=== PATIENT | female | born 1985 | race Caucasian/White ===

== ENCOUNTER 2018-04-27 15:31 | Emergency (ER) | payer MEDICAID ==
[~2018-04-27] VITALS: Ht 167.6 cm; Wt 89.8 kg
[2018-04-27 16:17] VITALS: BP 110/75; Ht 167.6 cm; Wt 89.8 kg
== END 2018-04-27 17:34 | disposition home or self-care (01) ==
LOC: ED 15:31
DX: S09.93XA Unspecified injury of face, initial encounter (principal); W21.02XA Struck by soccer ball, initial encounter; Y93.66 Activity, soccer; Y92.322 Soccer field as the place of occurrence of the external cause; Y99.8 Other external cause status
CPT/HCPCS: J1885

== ENCOUNTER 2019-05-02 18:33 | Emergency (ER) | payer BC ==
[~2019-05-02] VITALS: Ht 167.6 cm; Wt 95.7 kg
[2019-05-02 18:46] VITALS: Ht 167.6 cm; Wt 95.7 kg
[2019-05-02 19:42] VITALS: BP 118/74
== END 2019-05-02 20:24 | disposition home or self-care (01) ==
LOC: ED 18:33
DX: L05.91 Pilonidal cyst without abscess (principal)
CPT/HCPCS: 82962; J2001